=== PATIENT | male | born 1985 | race Asian ===

== ENCOUNTER 2019-01-13 09:37 | Emergency (ER) | payer OTHER ==
[2019-01-13 09:46] VITALS: BP 139/86; PULSE 95; TEMP 98.2; BMI 33.0
[2019-01-13 10:54] LABS: BASO % 0.6 % (0-2.0); EOS % 0.4 % (0-4.5); HEMATOCRIT 45.8 % (35.4-49); HEMOGLOBIN 15.4 GM/dL (11.7-16.9); LYMPH % 21.6 % (8-40); MCH 29.2 pg (25.7-33.7); MCHC 33.5 g/dl (32.0-35.9); MEAN CELL VOLUME 87.2 fl (80-96); MONO % 7.2 % (3.8-10.2); NEUT % 70.2 % (42.8-82.8); PLATELET COUNT 225 K/MM3 (134-434); RBC 5.25 M/mm3 (4.00-5.60); RDW 12.6 % (11.9-15.9); WHITE BLOOD COUNT 7.9 K/mm3 (4.0-10.0)
--- NOTE | 2019-01-13 11:05 | PDOC ---
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 Patient is in the emergency department and has agreed to HIV and hepatitis testing although states his history is negative. Patient cleaned wound with soap and water and came for needle stick exposure. Timing: this morning Exposed Location: Right: Finger(s) Assessing Significant Risk PEP: Yes Percutaneous, Yes Blood, Yes Potentially Infectious Fluid Past History - Travel Traveled outside of the country in the last 30 days: No Close contact w/someone who was outside of country & ill: No - Past Medical History Allergies/Adverse Reactions: Allergies Allergy/AdvReac Type Severity Reaction Status Date / Time No Known Allergies Allergy Verified 01/13/19 09:48 Home Medications: Ambulatory Orders NK [No Known Home Medication] 01/13/19 COPD: No - Suicide/Smoking/Psychosocial Hx Smoking History: Never smoked Information on smoking cessation initiated: No Hx Alcohol Use: No Drug/Substance Use Hx: No *Physical Exam - Vital Signs Last Vital Signs Temp Pulse Resp BP Pulse Ox 98.2 F 95 H 18 139/86 100 01/13/19 09:44 01/13/19 09:44 01/13/19 09:44 01/13/19 09:44 01/13/19 09:44 - Physical Exam General Appearance: Yes: Nourished, Appropriately Dressed. No: Apparent Distress HEENT: positive: JULIANO, Normal ENT Inspection, TMs Normal, Pharynx Normal Neck: positive: Supple. negative: Tender Respiratory/Chest: positive: Lungs Clear, Normal Breath Sounds Gastrointestinal/Abdominal: positive: Soft. 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 referral to PCP: Yes (works for [employer]- will F/U with their [facility]) Progress Note - Progress Note Progress Note: Needle stick, healthcare worker with informed consent, source patient tested HIV NEGATIVE, , hepatitis PENDING Patient refuses PEP Source patient medical record is [id number] *DC/Admit/Observation/Transfer Diagnosis at time of Disposition: Needlestick injury accident with exposure to body fluid - Discharge Dispostion Disposition: HOME Condition at time of disposition: Stable Decision to Admit order: No - Referrals - Patient Instructions Printed Discharge Instructions: How to Handle Body Fluid Exposure -- Healthcare Worker Additional Instructions: Keep wound clean and dry call [employer] to seek advice about follow-up and retesting in 3-6 months - Post Discharge Activity Forms/Work/School Notes: Back to Work
[2019-01-13 11:30] LABS: ALBUMIN 4.4 g/dl (3.4-5.0); ALK PHOS 76 U/L (45-117); ANION GAP 8 MMOL/L (8-16); BILIRUBIN,TOTAL 0.4 mg/dL (0.2-1); BLOOD UREA NITROGEN 13 mg/dL (7-18); CALCIUM 8.8 mg/dL (8.5-10.1); CHLORIDE 104 mmol/L (98-107); CHOLESTEROL 232 mg/dL (50-200); CO2 27 mmol/L (21-32); CREATININE 0.8 mg/dL (0.55-1.3); GAMMA GLUTAMYL TRANSPEPTIDASE 50 U/L (5-85); GLUCOSE,RANDOM 96 mg/dL (74-106); LDH 215 U/L (87-246); PHOSPHOROUS 2.7 mg/dL (2.5-4.9); POTASSIUM 4.2 mmol/L (3.5-5.1); SGOT/AST 38 U/L (15-37); SGPT/ALT 92 U/L (13-61); SODIUM 139 mmol/L (136-145); TOT PROT 8.3 g/dl (6.4-8.2); TRIGLYCERIDES 271 mg/dL (0-150)
[2019-01-14 06:06] LABS: HBsAG SCREEN Negative (Negative)
== END 2019-01-13 12:51 | disposition home or self-care (01) ==
LOC: JERFT 09:37
DX: Z77.21 Contact with and (suspected) exposure to potentially hazardous body fluids (principal); S61.234A Puncture wound without foreign body of right ring finger without damage to nail, initial encounter; W46.1XXA Contact with contaminated hypodermic needle, initial encounter; Y93.89 Activity, other specified; Y92.89 Other specified places as the place of occurrence of the external cause; Y99.0 Civilian activity done for income or pay
CPT/HCPCS: 36415; 80053; 82465; 82977; 83615; 84100; 84478; 84550; 85025; 86317; 86706; 86803; 87340; 87389; 99281-25